=== PATIENT | female | born 1960 ===

== ENCOUNTER 2019-05-10 19:28 | Emergency (ER) | payer MEDICARE, MEDICAID, SELFPAY ==
--- NOTE | 2019-05-10 19:32 | ED.EAR ---
HPI - Ear Problem General Chief complaint: Ear Stated complaint: ear Time Seen by Provider: 05/10/19 19:31 Source: patient Mode of arrival: ambulatory Limitations: no limitations History of Present Illness HPI Narrative: A 58 y/o female presents to the ED with c/o bleeding from her right ear. Pt states that at 1200 today she was cleaning out her ear with a Q-Tip and Peroxide because it was clogged. She notes that her ear then started to bleed and it has not stopped since. Pt reports otalgia and decreased hearing, but denies fever. She has no other complaints at this time. MD Complaint: other (bleeding ear) Location: right ear Duration: constant Discharge from ear: Reports yes - bloody Associated symptoms ear: decreased hearing and other (otalgia) Treatment prior to arrival: attempt at ear wax removal Related Data Allergies Allergy/AdvReac Type Severity Reaction Status Date / Time No Known Allergies Allergy Unknown Verified 11/29/18 21:30 Review of Systems Review of Systems: All systems reviewed & are unremarkable except as noted in HPI and below Constitutional: Constitutional: Denies fever(s) ENT: Reports ear discharge (bleeding in right), Reports otalgia and Reports hearing loss PMFSH Past Medical History Medical History (Updated 05/10/19 @ 20:33 by Raymon Nunez DO) Arthritis Bronchitis CHF (congestive heart failure) Diabetes Epilepsy GERD (gastroesophageal reflux disease) Heart attack HTN (hypertension) Pneumonia Seizure UTI (urinary tract infection) Surgical History Surgical History (Updated 05/10/19 @ 19:35 by Maru Duncan) History of hysterectomy History of partial thyroidectomy Social History Social History (Updated 05/10/19 @ 19:35 by Maru Duncan) Smoking status: Never smoker Gender identity (if verbalized by the patient): Female Exam Narrative: Exam Narrative: APPEARANCE: No acute distress, nontoxic, resting in bed EYES: EOMI HEENT: Normocephalic, atraumatic, left TM is normal appearance, the right external ear has some mild swelling but is soft external canal has a circular area of swelling as well as mild bloody discharge from wound circular that appears to be injury from Q-tip the TM that is visualized appears to be normal in appearance and intact nares patent oromucosa moist pharynx a lot of both ears RESPIRATORY: No respiratory distress MUSCULOSKELETAl: Moves all extremities. NEURO: Awake and alert. Following commands, speech normal, no focal deficits SKIN:: Warm, dry. No rashes lesions or abrasions PSYCHIATRIC: Normal affect/mood, Course Course Emergency Course: Discussed with patient results of workup and diagnosis. Discussed need for follow-up with primary care, proper use of medication, and reasons to return to the emergency department. Patient understands and agrees to current treatment plan Vital Signs Vital signs: Vital Signs Temperature 97.5 F L 05/10/19 19:34 Pulse Rate 117 H 05/10/19 19:34 Respiratory Rate 19 05/10/19 19:34 Blood Pressure 146/98 H 05/10/19 19:34 Pulse Oximetry 98 05/10/19 19:34 Temperature 97.5 F L 05/10/19 19:34 Pulse Rate 117 H 05/10/19 19:34 Respiratory Rate 19 05/10/19 19:34 Blood Pressure 146/98 H 05/10/19 19:34 Pulse Oximetry 98 05/10/19 19:34 Medical Decision Making Vital Signs Vital Signs: Vital Signs Temperature 97.5 F L 05/10/19 19:34 Pulse Rate 117 H 05/10/19 19:34 Respiratory Rate 19 05/10/19 19:34 Blood Pressure 146/98 H 05/10/19 19:34 Pulse Oximetry 98 05/10/19 19:34 Temperature 97.5 F L 05/10/19 19:34 Pulse Rate 117 H 05/10/19 19:34 Respiratory Rate 19 05/10/19 19:34 Blood Pressure 146/98 H 05/10/19 19:34 Pulse Oximetry 98 05/10/19 19:34 Discharge Plan Discharge Clinical Impression: Otitis externa Patient Disposition: Home, Self-Care Condition: Stable Instructions: Antibiotic Form, Otitis Externa (DC) Additional Instructions: Return f
[2019-05-10 19:34] VITALS: BP 146/98; PULSE 117; RESP 19; TEMP 36.4; O2SAT 98
[2019-05-10] MEDS: AMOXICILLIN/CLAVULANATE K 875-125 MG TAB 1 TABLET PO (20:27)
[2019-05-10 21:02] VITALS: BP 136/71; PULSE 98; RESP 16; TEMP 36.4; O2SAT 100
== END 2019-05-10 21:05 | disposition home or self-care (01) ==
PROVIDERS: Emergency Provider Emergency Medicine; PCP Internal Medicine
DX: H60.91 Unspecified otitis externa, right ear (principal); M19.90 Unspecified osteoarthritis, unspecified site; I50.9 Heart failure, unspecified; E11.9 Type 2 diabetes mellitus without complications; G40.909 Epilepsy, unspecified, not intractable, without status epilepticus; K21.9 Gastro-esophageal reflux disease without esophagitis; I25.2 Old myocardial infarction; I11.0 Hypertensive heart disease with heart failure; Z87.440 Personal history of urinary (tract) infections; E89.0 Postprocedural hypothyroidism
CPT/HCPCS: 99283; A9270

== ENCOUNTER 2019-05-11 00:35 | Emergency (ER) | payer MEDICARE, MEDICAID, SELFPAY ==
[2019-05-11 00:43] VITALS: BP 140/96; PULSE 74; RESP 16; TEMP 36.9; O2SAT 100
--- NOTE | 2019-05-11 00:44 | ED.GENADULT ---
HPI - General Adult General Chief complaint: Recheck/Abnormal Lab/Rx Stated complaint: worsening ear pain Time Seen by Provider: 05/11/19 00:40 Source: patient and old records reviewed Mode of arrival: ambulatory Limitations: no limitations History of Present Illness HPI narrative: Patient is a 58-year-old female who presents to emergency department for evaluation of continued right ear pain was seen 5 hours ago in the emergency department evaluated by 3 providers was given antibiotics and sent in the emergency department waiting room checked back in to be reevaluatted. Patient notes aching pain to the right ear notes that she has had some mild oozing patient denies fever chills or other URI symptoms and on arrival is in no distress Related Data Allergies Allergy/AdvReac Type Severity Reaction Status Date / Time No Known Allergies Allergy Unknown Verified 11/29/18 21:30 Review of Systems Review of Systems: All systems reviewed & are unremarkable except as noted in HPI and below PMFSH Past Medical History Medical History Arthritis Bronchitis CHF (congestive heart failure) Diabetes Epilepsy GERD (gastroesophageal reflux disease) Heart attack HTN (hypertension) Pneumonia Seizure UTI (urinary tract infection) Surgical History Surgical History History of hysterectomy History of partial thyroidectomy Social History Social History Smoking status: Never smoker Gender identity (if verbalized by the patient): Female Exam Const: General: no acute distress and alert Orientation/consciousness: patient oriented x3 HENMT: Head: normal to inspection Ears: Abnormal EAC present (Right external canal with irritation able to visualize the TM no perforatio) Face and sinus: normal facial exam Eyes: Conjunctivae: conjunctivae normal Pupils: Equal, round and reactive pupils present Resp: Effort & Inspection: normal respiratory effort Auscultation: clear to auscultation bilaterally Cardio: Rate: regular rate Rhythm: regular rhythm Skin: General skin exam: normal color Other: Slight swelling and redness of the external ear no mastoid tenderness no preauricular abnormalities Neuro: General: patient oriented x3 and CN's II-XI intact bilaterally Psych: Mental Status: mental status grossly normal Affect: normal affect Course Course Emergency Course: Patient in the room in no distress given a dose of Rocephin some ibuprofen discharged home Medical Decision Making MDM Narrative Medical decision making narrative: Patient afebrile nontoxic-appearing no distress advised to not put anything else in the ear other than what was prescribed. Advised to continue the medication she was prescribed and to follow with ENT Discharge Plan Discharge Clinical Impression: Otitis externa Patient Disposition: Home, Self-Care Condition: Stable Instructions: Antibiotic Form, Otitis Externa (DC) Additional Instructions: Follow-up with ear nose and throat doctor first thing tomorrow to set up for reevaluation in the next 5 days Do not put anything into the ear other than what was prescribed to you today Return if symptoms worsen or concerns or any increase in redness swelling pain fever over 100.5 any vomiting weakness or change in mental status Follow patient education sheets Only take medications as directed Prescriptions: No Action amoxicillin-pot clavulanate [Augmentin] 875-125 mg tablet 1 tablet PO Q12H Qty: 20 RF: 0 Ciprodex 0.3-0.1 % drops,suspension 4 drop EACH EAR Q12H 7 Days Qty: 7.5 RF: 0 Follow-up/Referrals: [place],Patricio Cornell MD [Primary Care Provider] - Jaspal Negro MD [Physician] -
[2019-05-11] MEDS: IBUPROFEN 600 MG TABLET PO (00:59)
[2019-05-11] MEDS: cefTRIAXone 1 GM VIAL IM (01:05)
--- NOTE | 2019-05-11 01:19 | PC.NURSE ---
Lidocaine used for Rocephin reconstitution.
[2019-05-11 01:20] VITALS: BP 141/99; PULSE 75; RESP 16; TEMP 36.7; O2SAT 100
[2019-05-11 01:23] VITALS: TEMP 36.7
== END 2019-05-11 01:23 | disposition home or self-care (01) ==
PROVIDERS: Emergency Provider Emergency Medicine; PCP Internal Medicine
DX: H60.91 Unspecified otitis externa, right ear (principal); I50.9 Heart failure, unspecified; I11.0 Hypertensive heart disease with heart failure; G40.909 Epilepsy, unspecified, not intractable, without status epilepticus; K21.9 Gastro-esophageal reflux disease without esophagitis; I25.2 Old myocardial infarction; Z87.440 Personal history of urinary (tract) infections; M19.90 Unspecified osteoarthritis, unspecified site; E89.0 Postprocedural hypothyroidism
CPT/HCPCS: 96372; 99283; A9270; J0696